=== PATIENT | female | born 1960 | race Caucasian/White ===

== ENCOUNTER 2018-11-15 06:55 | Day surgery (SDC) | payer BC ==
[~2018-11-15] VITALS: Ht 160 cm; Wt 93.0 kg
[2018-11-15] MEDS ORDERED: SIMV40TA2 PO (08:55)
[2018-11-15] MEDS ORDERED: THROMBIN (BOVINE) 5000 UNITS/ VIAL TP ONE ×2 (09:25→09:50)
[2018-11-15] MEDS ORDERED: DEXAMETHASONE SOD PHOSPHATE 4 MG/ML VIAL IVP ONE (09:50)
[2018-11-15] MEDS ORDERED: ONDANSETRON HCL 4 MG/2 ML VIAL IVP ONE (09:50)
[2018-11-15] MEDS ORDERED: BACITRACIN ZINC 15 GM TOPICAL OINTMENT TP ONE (09:50)
[2018-11-15] MEDS ORDERED: LR 1,000 ML IV.SOLN IV ONE (09:50)
[2018-11-15] MEDS ORDERED: KETOROLAC TROMETHAMINE 30 MG VIAL IVP ONE (09:50)
[2018-11-15] MEDS ORDERED: NS IRRIG SOLN 1000 ML IR ONE (09:50)
[2018-11-15] MEDS ORDERED: SEVOFLURANE 15 MIN GAS INH ONE (09:50)
[2018-11-15] MEDS ORDERED: ROCURONIUM BROMIDE 10 MG/ML (ZEMURON) IV ONE (09:50)
[2018-11-15] MEDS ORDERED: LIDOCAINE/EPI 1% 1:100000 20 ML VIAL INJ ONE (09:50)
[2018-11-15] MEDS ORDERED: CEFAZOLIN 2 GM IVPB PREMIX 50 ML IV ONE (09:50)
[2018-11-15] MEDS ORDERED: METOCLOPRAMIDE HCL 10 MG/2 ML VIAL IVP ONE (09:50)
[2018-11-15] MEDS ORDERED: MIDAZOLAM HCL 5 MG/5 ML VIAL IVP ONE (09:50)
[2018-11-15] MEDS ORDERED: SUCCINYLCHOLINE CHLORIDE 20 MG/ML(QUELICIN) IVP ONE (09:50)
[2018-11-15] MEDS ORDERED: FAMOTIDINE PF 20 MG/2 ML VIAL IVP ONE (09:50)
[2018-11-15] MEDS ORDERED: fentaNYL CITRATE 250 MCG/5 ML AMP IV ONE (09:50)
[2018-11-15] MEDS ORDERED: PROPOFOL 200MG/ 20ML VIAL (DIPRIVAN) IV ONE (09:50)
[2018-11-15] MEDS ORDERED: FAMOTIDINE PF 20 MG/2 ML VIAL ONE (10:41)
[2018-11-15] MEDS ORDERED: LR 1,000 ML IV SCH (11:04)
[2018-11-15] MEDS ORDERED: HYDROmorphone 1 MG INJ. 1 MG/ML AMPUL IVP PRN (11:15)
[2018-11-15] MEDS ORDERED: MEPERIDINE HCL/PF 25 MG/ML DISP.SYRIN IVP PRN (11:15)
[2018-11-15] MEDS ORDERED: HYDROmorphone 2 MG/ML VIAL IVP PRN ×2 (11:15)
[2018-11-15] MEDS ORDERED: ONDANSETRON HCL 4 MG/2 ML VIAL IVP PRN (12:15)
[2018-11-15] MEDS ORDERED: HYDROcodone/ACETAMIN 5-325 MG TAB (NORCO/ VICODIN) PO PRN (12:15)
--- NOTE | 2018-11-15 13:15 | NUR ---
Note Pt arrived to floor via bed to room from PACU. Pt has surgical dressing on throat - CDI at this time. NO SOB/resp distress or pain/discomfort noted at this time. Pt's family arrived to floor with pt. Pt was oriented to nursing routines and procedures at this time. Questions/concerns were answered at this time. Call light within reach.
[2018-11-15] MEDS: NORMAL SALINE 5 ML DISP.SYRIN IVF SCH ×2 (14:00→22:30)
[2018-11-15] MEDS ORDERED: NORMAL SALINE 5 ML DISP.SYRIN IVF SCH (14:00)
--- NOTE | 2018-11-15 16:00 | NUR ---
Note Pt's admission assessment was completed at this time. Pt's IV was saline locked at this time. Pt has no difficulty swallowing or any pain at this time. Pt has SCD's bilaterally all shift. No needs noted a this time. Call light within reach.
--- NOTE | 2018-11-15 18:35 | NUR ---
Note Pt sitting up in bed eating her Mechanical soft dinner tray. No SOB/resp distress or pain/discomfort noted at surgical site. Surgical dressing at throat CDI - Thyroidectomy tray at bedside all shift. Pt was checked on q1' and PRN all shift for needs and care. No needs noted at this time. Pt ambulates to restroom to void independently with steady gait. Call light within reach.
--- NOTE | 2018-11-15 20:00 | NUR ---
Patient in bed, watching TV, in no apparent distress, respiration even and unlabored, on room air, no SOB or any respiratory distress, lung sounds clear, no cough, no congestion, able to swallow, afebrile, skin warm and dry to touch, s/p total thyroidectomy, no bleeding, no drainage noted, dressing clean, dry and intact. denies pain at the present. no chest pain, no dizziness. remains alert and oriented x4, on fall precaution, safety measures provided, will continue to monitor, call light within reach
--- NOTE | 2018-11-15 22:00 | NUR ---
Patient in bed, remains alert and oriented x4, in no apparent distress, all needs attended to.
[2018-11-15] MEDS: DEXAMETHASONE SOD PHOSPHATE 4 MG/ML VIAL IVP SCH (22:26)
--- NOTE | 2018-11-16 | NUR ---
Note remains alert, no change in LOC, able to make needs known, in good spirit, no dyspnea noted, afebrile, all due medications administered per order with no adverse effect noted, denies pain, no dysphagia, lungs clear to auscultation, sleeping at this time, quiet environment provided, safety measures provided, s/p total thyroidectomy, wound remains clean, dry and intact, no complications noted, no bleeding or any drainage noted, , patient with no nausea, or vomiting, call light placed within reach.
--- NOTE | 2018-11-16 02:00 | NUR ---
note Patient in no apparent distress, sleeping quietly at this time, respiration even and unlabored, no complaint of pain or any discomfort, IV heplock to the left hand remains patent, no complications noted, dressing clean, dry and intact, no complication s noted to the wound in the neck area, will continue to monitor, bed in low position and call light within reach
[2018-11-16] MEDS: DEXAMETHASONE SOD PHOSPHATE 4 MG/ML VIAL IVP SCH (06:03)
[2018-11-16] MEDS: NORMAL SALINE 5 ML DISP.SYRIN IVF SCH (06:06)
--- NOTE | 2018-11-16 07:38 | NUR ---
OPENING NOTE Patient resting in the bed. No acute distress. AAO x 4. Denial of pain. Skin warm and dry to touch. SL intact to left hand, no redness, no swelling, patent. Surgical dressing clean and dry intact to anterior neck area, no bleeding, no drainage note. Discussed the safety issue, use call light when needs help, and plan of care, verbally understanding. Safety measure maintained. Call light within reached. Bed locked in low position, side rails up. Refused bed alarm, risk and benefit explained, verbally understanding. Will continue to monitor.
[2018-11-16 08:05] VITALS: BP_SYST 149
--- NOTE | 2018-11-16 09:22 | NUR ---
BATHROOM Patient ambulated to bathroom by herself with steady gait. Safety measure maintained. Waiting for the ride to discharge home.
[2018-11-16 09:43] VITALS: BP_SYST 149
--- NOTE | 2018-11-16 10:18 | NUR ---
D/C Patient Patient given medication reconciliation form and D/C instructions. Exit Care provided. Patient verbalized understanding. MD discussed with patient the results and treatment provided. Ambulatory with steady gait for discharge to home. Patient in stable condition, ID band removed. IV catheter removed, intact and dressing applied, no active bleeding. Per patient make the appointment with Dr. Cabrales on next Wednesday by herself. Patient educated on pain management. All belongings sent with patient.
== END 2018-11-16 10:18 | disposition home or self-care (01) ==
LOC: SMU 06:55 → SDS 06:55 → EDSTATUS 09:45 → SMU 13:18 → SDS 11-16 10:18
PROVIDERS: ATTEND Otolaryngology Plastic Surgery within the Head & Neck
DX: C73 Malignant neoplasm of thyroid gland (principal); E66.9 Obesity, unspecified; E78.5 Hyperlipidemia, unspecified; Z88.2 Allergy status to sulfonamides; Z79.899 Other long term (current) drug therapy
CPT/HCPCS: 36415; 60240; 82310; 87081 ×2; 88307; C1782; J0330; J0690; J1100 ×2; J1885; J2250; J2405; J2704; J2765; J3010; J3490; J7120